=== PATIENT | female | born 1950 | race Hispanic/Latino ===

== ENCOUNTER → 2017-01-30 | Day surgery (SDC) | payer OTHER, MEDICARE ==
[2017-01-29 13:25] LABS: BASOPHILS # (AUTO) 0.1 (0.0-0.1); BASOPHILS % 0.6 % (0.0-1.0); EOSINOPHILS # (AUTO) 0.2 (0.0-0.4); EOSINOPHILS % 1.7 % (0.0-6.0); HEMATOCRIT 40.3 % (34.2-44.1); HEMOGLOBIN 13.5 g/dL (12.0-16.0); LYMPHOCYTES # (AUTO) 2.1 (1.0-3.2); LYMPHOCYTES % 24.7 % (18.0-39.1); MEAN CORPUSCULAR HEMOGLOBIN 29.1 pg (28-32); MEAN CORPUSCULAR HGB CONC 33.5 g/dL (31-35); MEAN CORPUSCULAR VOLUME 86.9 fL (81-99); MONOCYTES # (AUTO) 0.8 (0.2-0.8); MONOCYTES % 8.9 % (4.4-11.3); NEUTROPHILS # (AUTO) 5.6 (2.1-6.9); NEUTROPHILS % 63.9 % (38.7-80.0); PLATELET COUNT 249 x10e3/uL (140-360); RED BLOOD COUNT 4.64 x10e6/uL (3.6-5.1); RED CELL DISTRIBUTION WIDTH 12.4 % (11.7-14.4)
[2017-01-29 13:45] LABS: ANION GAP 12.5 mmol/L (8-16); BLOOD UREA NITROGEN 16 mg/dL (7-26); BUN/CREATININE RATIO 21 (6-25); CALCIUM 10.6 mg/dL (8.4-10.2); CARBON DIOXIDE 28 mmol/L (22-29); CHLORIDE 103 mmol/L (98-107); CREATININE, SERUM 0.75 mg/dL (0.57-1.11); EST GLOMERULAR FILTRATION RATE > 60 ML/MIN (60-); GLUCOSE 107 mg/dL (74-118); POTASSIUM 4.5 mmol/L (3.5-5.1); SODIUM 139 mmol/L (136-145)
--- NOTE | 2017-01-29 14:04 | Diagnostic Imaging Report ---
PROCEDURE: X-RAY CHEST, TWO VIEWS COMPARISON: None. INDICATIONS: PREOPERATIVE CHEST XRAY FOR BREAST SURGERY FINDINGS: LUNGS: No consolidations or edema. PLEURA: No effusions or pneumothorax. HEART \T\ MEDIASTINUM: The heart is within normal size-limits. BONES \T\ SOFT TISSUES: No acute findings. Linear metallic structure projects over the medial left lung base on the frontal radiograph, presumably external to the patient as it is not visualized on lateral radiograph. CONCLUSION: No acute cardiopulmonary abnormality. Dictated by: Benjy Alcaraz M.D. on 01/29/2017 at 14:12 Electronically approved by: Benjy Alcaraz M.D. on 01/29/2017 at 14:12
[~2017-01-30] MED LIST: AMLODIPINE BESYL5 MG PO; DEXAMETHASONE SOD PHOS INJ 4 MG/ML VIAL IV ONE; FENTANYL CITRATE/PF 100MCG/2 ML INJ ONE; FOLIC ACID1 MG PO; KETOROLAC TROMETHAMINE 30 MG/ML VIAL IV ONE; LIDOCAINE HCL 1% LOCAL INJ 20 ML VIAL ONE; LIDOCAINE HCL 2% LOCAL INJ 5 ML SDV VIAL INJ ONE; LISINOPRIL10 MG PO; MIDAZOLAM HCL 2 MG/2 ML VIAL ONE; ONDANSETRON HCL INJ 2 MG/ML VIAL IV ONE; PROPOFOL IV EMULSION 10 MG/ML 20 ML VIAL IV ONE; SEVOFLURANE INHAL SOLN 250 ML PEN BTL INH ONE; SYNTHROID125 MCG PO
--- NOTE | 2017-01-30 11:56 | Diagnostic Imaging Report ---
Lymphoscintigraphy Reason for Exam: Left breast cancer; scheduled for sentinel lymph node biopsy Radiopharmaceutical: Tc-99m filtered sulfur colloid 545 microcuries Report: The radiotracer was given as two separate injections intradermally at the edge of the left areola. Images of the chest and left axilla were obtained through 1 hour. A single focal area of tracer accumulation is seen in the left axilla. No accumulation of tracer is seen in the midline of the chest or in the neck. Impression: Injection for sentinel lymph node mapping. A single sentinel lymph node is identified in the left axilla. Signed by: Dr. Radha Martinez M.D. on 01/30/2017 11:52 AM
--- NOTE | 2017-01-30 15:35 | Diagnostic Imaging Report ---
#[id number] - [id number] NEEDLE LOCALIZATION: 01/30/2017 PROCEDURE DESCRIPTION: The patient had an ultrasound guided biopsy of the left breast, at the 9:00 position. Mammograms show a biopsy marker clip in the 2.2 cm spiculated mass. Preoperative localization was requested. Written informed written consent was obtained from the patient, and a formal time out was taken to confirm patient identity and procedure to be perfomed. Using sterile technique, 1% lidocaine local anesthesia, and mammographic guidance, the mass with the clip was preoperatively localized with a hookwire. The hookwire was intentionally placed at the edge of the mass between the smaller 6 mm. Final CC and LM mammograms were obtained to document wire location. A sterile bandage was placed over the wire and the patient was transferred from mammography with no immediate complications noted. Correlation is made to exams dated: 12/19/2016 mammogram, 12/19/2016 ultrasound biopsy - [facility], 11/01/2016 ultrasound and 10/05/2016 mammogram - [facility]. IMPRESSION: NEEDLE LOCALIZATION Follow-up with ACR/ACS guidelines. Tej chiang/trae:01/30/2017 12:09:28 Pattern Maker Programer: Radha RUGGIERO(R)(M), [facility] [id number]
--- NOTE | 2017-01-30 15:35 | Diagnostic Imaging Report ---
#[id number] - [id number] SPECIMEN: 01/30/2017 CLINICAL: The specimen radiograph contains the hook wire, spiculated mass with the biopsy marker and the smaller adjacent mass. Correlation is made to exams dated: 01/30/2017 localization, 12/19/2016 mammogram and 12/19/2016 ultrasound biopsy - [facility]. IMPRESSION: SPECIMEN Follow-up with ACR/ACS guidelines. Tej chiang/trae:01/30/2017 13:52:49 Window Glass Installer: Claudia RUGGIERO(R)(M), [facility]
--- NOTE | 2017-02-01 03:39 | Operative Report ---
DATE OF PROCEDURE: January 30, 2017 PREOPERATIVE DIAGNOSIS: Left breast cancer times 2. POSTOPERATIVE DIAGNOSIS: Left breast cancer times 2. OPERATION PERFORMED: Left partial mastectomy with preoperative ultrasound-guided needle localization and intraoperative specimen mammography and left sentinel node mapping and biopsy of the left axilla. JEWELRY BEARING MAKER: Donaldo PRESCOTT. ANESTHESIA: General. COMPLICATIONS: None. ESTIMATED BLOOD LOSS: Minimal. DESCRIPTION OF PROCEDURE: With the patient lying in bed in the supine position under general anesthesia, the left breast was prepped with Betadine solution and draped in the usual manner. The patient had undergone a previous ultrasound-guided needle localization of the 2 spots in the medial aspect of the left breast. An incision was then made at the 9 o'clock position on the left breast and carried down into the subcutaneous tissue. The wire was identified and followed to the area in question, and a wide lumpectomy of the area in question to include both of the masses that were present in the breast was then carried out and the 2 masses were totally and completely removed without violating the borders. The specimen was sent for specimen mammography that showed that the 2 masses had been removed. After this was done, the whole area was thoroughly irrigated. Perfect hemostasis was ascertained. The breast tissue was then reapproximated with interrupted sutures of 2-0 chromic, and the skin was closed with interrupted vertical mattress sutures of 3-0 nylon. Gloves and instruments were changed. The patient had undergone a previous sentinel node mapping in the x-ray department, and the area in question was easily identified with the Neoprobe at the base of the left axilla. An incision was made over this area, carried down through the subcutaneous tissue and through the superficial fascia, and immediately a pocket of lymph nodes was identified which had counts upwards of 2000, clearly consistent with the sentinel node. The rest of the axilla had counts that were in the 30s and 40s. The main sentinel node was then removed by from all of the surrounding areas, ligating all the areas with 2-0 Vicryl. A 2nd enlarged lymph node was also identified in the left axilla just above this area, and this was also removed as a 2nd node and sent for pathological examination. The whole area was thoroughly irrigated. Perfect hemostasis was ascertained. The wounds were then closed in layers. The subcutaneous tissue was approximated with 2-0 chromic, and the skin was closed with interrupted vertical mattress sutures of 3-0 silk. A dressing was applied. The sponge, lap and needle count was correct. The patient tolerated the procedure well and returned to the recovery room in stable condition. Job#: [id number] EV
== END | disposition home or self-care (01) ==
LOC: OR 08:05
PROVIDERS: ATTEND Surgery
DX: C50.912 Malignant neoplasm of unspecified site of left female breast (principal); D05.12 Intraductal carcinoma in situ of left breast; I10 Essential (primary) hypertension; Z01.810 Encounter for preprocedural cardiovascular examination; Z01.812 Encounter for preprocedural laboratory examination; Z01.818 Encounter for other preprocedural examination
CPT/HCPCS: 19281; 19301; 36415; 38525; 71020; 76098; 78195; 80048; 85025; 88307; 93005; A9541; C1769; J1100; J1885; J2001 ×2; J2250; J2405

== ENCOUNTER → 2017-06-19 | Outpatient (CLI) | payer MEDICARE ==
[~2017-06-19] MED LIST changes: -DEXAMETHASONE SOD PHOS INJ 4 MG/ML VIAL IV ONE; -FENTANYL CITRATE/PF 100MCG/2 ML INJ ONE; +GADOBENATE DIMEGLUMINE 1 ML IV ONE; -KETOROLAC TROMETHAMINE 30 MG/ML VIAL IV ONE; -LIDOCAINE HCL 1% LOCAL INJ 20 ML VIAL ONE; -LIDOCAINE HCL 2% LOCAL INJ 5 ML SDV VIAL INJ ONE; -MIDAZOLAM HCL 2 MG/2 ML VIAL ONE; -ONDANSETRON HCL INJ 2 MG/ML VIAL IV ONE; -PROPOFOL IV EMULSION 10 MG/ML 20 ML VIAL IV ONE; -SEVOFLURANE INHAL SOLN 250 ML PEN BTL INH ONE
[2017-06-19 09:09] LABS: BLOOD UREA NITROGEN 16 mg/dL (7-26); BUN/CREATININE RATIO 20 (6-25); EST GLOMERULAR FILTRATION RATE > 60 ML/MIN (60-)
--- NOTE | 2017-06-21 16:41 | Diagnostic Imaging Report ---
PROCEDURE: MRI ABDOMEN WOW TECHNIQUE: Multiplanar and multisequence evaluation of the abdomen was performed without and with contrast. Contrast: 17 mL MultiHance. COMPARISON: None. INDICATIONS: Abnormal PET scan FINDINGS: LIVER: No hepatic signal abnormality. 7.0 x 8.8 cm complex multi-septated ill defined complex cystic lesion involving the left hepatic lobe segment 2 and 3. There are mild enhancement of the periphery and septations. No definite internal enhancement. Along the posterior inferior aspect there is a 4.5 x 2.5 cm complex T2 hyperintense cystic region that is beyond the margin of the liver and abuts the pancreas (series 8 image 19). This area also abuts the lesser curvature of the stomach. Along the undersurface is trace amount of free fluid. BILIARY: No ductal dilatation or filling defect. PANCREAS: No mass or ductal dilatation. SPLEEN: No splenomegaly. ADRENALS: No nodules. KIDNEYS: No hydronephrosis or mass in the imaged portion of the kidneys. Bilateral parapelvic renal cysts. PERITONEUM / RETROPERITONEUM: No upper abdominal free fluid. LYMPH NODES: No upper abdominal lymphadenopathy. VESSELS: Unremarkable. BONES AND SOFT TISSUES: Unremarkable. IMPRESSION: 7.0 x 8.8 cm complex cystic structure in the left hepatic lobe, likely an abscess. Additional component extends beyond the liver margin measuring 4.5 x 2.5 cm. This abuts the pancreas and in the stomach. Recommend followup with CT abdomen without and with contrast mass liver protocol and possible IR consult for drainage. Dictated by: Pedro Rivera M.D. on 06/21/2017 at 16:43 Electronically approved by: Pedro Rivera M.D. on 06/21/2017 at 16:43
== END ==
LOC: MRI 08:18
PROVIDERS: ATTEND Internal Medicine Hematology & Oncology
DX: R16.0 Hepatomegaly, not elsewhere classified (principal)
CPT/HCPCS: 36415; 74183; 82565; 84520